=== PATIENT | female | born 1990 | race Caucasian/White ===

== ENCOUNTER 2017-05-22 12:04 | Emergency (ER) | payer MEDICAID, OTHER ==
[2017-05-22 12:05] VITALS: BMI 21.4
[2017-05-22 12:44] VITALS: BP 113/73; PULSE 80; RESP 16; TEMP 98.5; O2SAT 99
--- NOTE | 2017-05-22 14:11 | ED PDOC ---
Upper Extremity Pain/Injury Time Seen by Provider: 05/22/17 12:45 Chief Complaint (Nursing): Upper Extremity Problem/Injury Chief Complaint (Provider): Upper extremity injury History Per: Patient History/Exam Limitations: no limitations Onset/Duration Of Symptoms: Days (Mar 02. ) Current Symptoms Are (Timing): Better Additional Complaint(s): Shira Niño is a 27 year old female, with no significant past medical history , who presents to the emergency department for evaluation of a sustained fracture on right 5th metacarpal on Mar 02. Patient was diagnosed with fracture at [facility] on Mar 02. Patient reports she followed up with orthopedic clinic and saw Dr. Burgess on 04/03/17. She brought a copy of her X- Ray which showed a healing fracture of right 5th metacarpal. Patient states she had an appointment today but the clinic cancelled and rescheduled for June 26. She didn't want to wait that long and wanted to see progress of healing. She denies any fever, chills, numbness or other complaints. Orthopedist: Dr. Burgess Past Medical History Reviewed: Historical Data, Nursing Documentation, Vital Signs Vital Signs: Last Vital Signs Temp 98.5 F 05/22/17 12:41 Pulse 80 05/22/17 12:41 Resp 16 05/22/17 12:41 BP 113/73 05/22/17 12:41 Pulse Ox 99 05/22/17 12:41 - Medical History PMH: No Chronic Diseases - Surgical History Surgical History: No Surg Hx - Family History Family History: States: Unknown Family Hx - Immunization History Hx Tetanus Toxoid Vaccination: No Hx Influenza Vaccination: No Hx Pneumococcal Vaccination: No - Home Medications Home Medications: Ambulatory Orders Medication Instructions Recorded Ibuprofen [Motrin] 600 mg PO TID #15 tab 03/02/17 - Allergies Allergies/Adverse Reactions: Allergies Allergy/AdvReac Type Severity Reaction Status Date / Time No Known Allergies Allergy Verified 05/22/17 12:41 Review of Systems ROS Statement: Except As Marked, All Systems Reviewed And Found Negative Constitutional: Negative for: Fever, Chills Musculoskeletal: Positive for: Hand Pain (healing fracture of right 5th metacarpal. ) Neurological: Negative for: Numbness Physical Exam - Reviewed Nursing Documentation Reviewed: Yes Vital Signs Reviewed: Yes - Physical Exam Appears: Positive for: Well, Non-toxic, No Acute Distress Skin: Positive for: Normal Color, Warm, Dry Neck: Positive for: Painless ROM, Supple Pulses-Radial (L): 2+ Pulses-Radial (R): 2+ Extremity: Positive for: Normal ROM, Capillary Refill (normal). Negative for: Tenderness, Deformity, Swelling Neurologic/Psych: Positive for: Alert, leave specialist II-XII, Oriented. Negative for: Motor/Sensory Deficits - ECG O2 Sat by Pulse Oximetry: 99 (RA) Pulse Ox Interpretation: Normal Medical Decision Making Medical Decision Making: Initial Impression: fracture of hand with routine healing Initial Plan: --Hand right 3 views [RAD] --reevaluation --X-Ray show healing fracture of 5th metacarpal. X-Ray results discussed with patient 13:55 --Advised to follow up with orthopedic referral or ortho clinic without fail. Return to the emergency room at any time for any new or worsening symptoms. Patient states she fully agrees with and understands discharge instructions. States that she agrees with the plan and disposition. Verbalized and repeated discharge instructions and plan. I have given the patient opportunity to ask any additional questions. ~ Scribe Attestation: Documented by Bhupinder Wilder, acting as a scribe for Kell Hameed PA-C. Provider Scribe Attestation: All medical record entries made by the Scribe were at my direction and personally dictated by me. I have reviewed the chart and agree that the record accurately reflects my personal performance of the history, physical exam, medical decision making, and the department course for this patient. I have also personally directed, reviewed, and agree with the discharge instructions and disposition. Disposition - Clinical Impression Clinical Impression: Fracture of hand with routine healing - Patient ED Disposition Is Patient to be Admitted: No Counseled Patient/Family Regarding: Studies Performed, Diagnosis, Need For Followup - Disposition Referrals: [facility] [Outside] Cody Deal MD [Staff Provider] - Disposition: Routine/Home Disposition Time: 13:45 Condition: STABLE Additional Instructions: Thank you for letting us take care of you today. You were treated for healing R hand fracture. The emergency medical care you received today was directed at your acute symptoms. Return to the Emergency Department if your symptoms worsen , do not improve, or if you have any other problems. Please contact one of the physicians/clinics you have been referred to that are listed on the Patient Visit Information form that is included in your discharge packet. Bring any paperwork you were given at discharge with you along with any medications you are taking to your follow up visit. Our treatment cannot replace ongoing medical care by a primary care provider (PCP) outside of the emergency department. Thank you for allowing the [facility] team to be part of your care today. 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
--- NOTE | 2017-05-22 14:37 | RAD ---
PROCEDURE: Right Hand Radiographs. HISTORY: Pain, right finger injury. COMPARISON: None. FINDINGS: BONES: Fracture 5th metacarpal likely subacute, healing based on the suggestion of callus formation. No significant soft tissue swelling at the fracture site. JOINTS: Normal. No osteoarthritic changes. SOFT TISSUES: Normal. OTHER FINDINGS: None. IMPRESSION: Distal non articular Fifth metacarpal fracture.
== END 2017-05-22 14:23 | disposition home or self-care (01) ==
LOC: H.ER 12:04
DX: Z47.89 Encounter for other orthopedic aftercare (principal)